=== PATIENT | female | born 1970 | race Caucasian/White ===

== ENCOUNTER 2021-12-02 12:23 | Inpatient (IN) | payer OTHER ==
[~2021-12-02] VITALS: Ht 162.6 cm; Wt 63.8 kg
[2021-12-02] MEDS ORDERED: ZOLPIDEM TARTRATE 10 MG TABLET PO PRN (12:45)
[2021-12-02] MEDS ORDERED: HALOPERIDOL 5 MG TABLET PO PRN (12:45)
[2021-12-02 18:12] VITALS: BP 134/72
[2021-12-02] MEDS ORDERED: INFLUENZA VIRUS VACCINE QVS 2021-22 (6MO+)/PF 60 MCG/0.5 ML SYRINGE IM. ONE (18:15)
[2021-12-03 06:07] VITALS: BP 128/75
[2021-12-03 07:26] LABS: BASOPHILS % (AUTO) 1.1 % (0.0-2.0); EOSINOPHILS % (AUTO) 2.4 % (1.0-6.0); HEMATOCRIT 34.7 % (36-46); HEMOGLOBIN 11.8 g/dL (12.0-16.0); LYMPHOCYTES # (AUTO) 1.5 K/uL (1.0-4.8); LYMPHOCYTES % (AUTO) 25.7 % (22.0-44.0); MEAN CORPUSCULAR HGB CONC 33.9 G/dL (31.0-37.0); MEAN CORPUSCULAR VOLUME 92 fL (80-100); MONOCYTES # (AUTO) 0.5 K/uL (0.1-1.0); MONOCYTES % (AUTO) 8.6 % (2.0-9.0); NEUTROPHILS # (AUTO) 3.6 K/uL (1.8-7.7); NEUTROPHILS % (AUTO) 62.2 % (40.0-70.0); PLATELET COUNT (AUTO) 322 K/uL (150-450); RED BLOOD CELL COUNT(AUTO) 3.79 MIL/uL (4.00-5.20); RED CELL DISTRIBUTION WIDTH 14.6 % (11.5-14.5)
[2021-12-03 07:33] LABS: HEMOGLOBIN A1C 5.4 % (3.8-5.6)
[2021-12-03 08:39] LABS: ALANINE AMINOTRANSFERASE 19 U/L (12-78); ALKALINE PHOSPHATASE 80 U/L (46-116); ANION GAP 9 mmol/L (8-16); ASPARTATE AMINOTRANSFERASE 18 U/L (15-37); BILIRUBIN,TOTAL 0.3 mg/dL (0.1-1.0); CALCIUM, TOTAL 8.4 mg/dL (8.8-10.5); CARBON DIOXIDE 27 mmol/L (22-29); CHLORIDE 104 mmol/L (98-107); CHOL/HDL RATIO 2.4 (3.9-5.7); CHOLESTEROL 184 mg/dL (131-200); CREATININE 0.68 mg/dL (0.60-1.30); FREE T4 (FREE THYROXINE) 0.76 ng/dL (0.76-1.46); GLOMERULAR FILTR. RATE CALC > 60 mL/min (>60); GLUCOSE,RANDOM 91 mg/dL (70-110); HCG,QUANTITATIVE < 1 mIU/mL (0-6); HDL CHOLESTEROL 76 mg/dL (40-60); LDL CHOL (CALC.) 86 mg/dL (0-130); POTASSIUM 4.1 mmol/L (3.5-5.1); SODIUM SERUM 140 mmol/L (136-145); THYROID STIMULATING HORMONE 1.16 uIU/mL (0.36-3.74); TOTAL PROTEIN, SERUM 6.8 g/dL (6.4-8.2); TRIGLYCERIDES 110 mg/dL (15-150); UREA NITROGEN, BLOOD 18 mg/dL (7-18)
[2021-12-03 08:55] VITALS: BP 143/78
[2021-12-03] MEDS: RisperiDONE 1 MG TABLET PO SCH ×2 (09:25→20:47)
[2021-12-03] MEDS: LORazepam 2 MG TABLET PO PRN ×2 (09:52→20:47)
[2021-12-03 16:09] VITALS: BP 122/82
[2021-12-03] MEDS ORDERED: ONDANSETRON HCL 4 MG TABLET PO PRN (18:45)
[2021-12-03] MEDS ORDERED: MAGNESIUM HYDROXIDE SUSPENSION 30 ML UDCUP PO PRN (18:45)
[2021-12-03] MEDS ORDERED: ACETAMINOPHEN 325 MG TABLET PO PRN (18:45)
[2021-12-03] MEDS ORDERED: ALBUTEROL SULFATE HFA 90 MCG/PUFF 8 GM INHALER IH PRN (18:45)
[2021-12-03] MEDS ORDERED: PETROLATUM,WHITE 28 GM JELLY TP PRN (18:45)
[2021-12-03] MEDS ORDERED: NICOTINE 14 MG/24 HOUR PATCH TD PRN (18:45)
[2021-12-03] MEDS ORDERED: LOPERAMIDE HCL 2 MG CAPSULE PO PRN (18:45)
[2021-12-03] MEDS ORDERED: MAG HYDROX/AL HYDROX/SIMETH ES 30 ML SUSPENSION UDCUP PO PRN (18:45)
[2021-12-03] MEDS ORDERED: DOCUSATE SODIUM 100 MG CAPSULE PO PRN (18:45)
[2021-12-03] MEDS ORDERED: GuaiFENesin/D-METHORPHAN [SUGAR-FREE] 200-20MG/10 ML SYRUP UDCUP PO PRN (18:45)
[2021-12-03] MEDS ORDERED: CloNIDine HCL 0.1 MG TABLET PO PRN (18:45)
[2021-12-03] MEDS ORDERED: IBUPROFEN 400 MG TABLET PO PRN (18:45)
[2021-12-04 06:05] VITALS: BP 132/79
[2021-12-04] MEDS: RisperiDONE 1 MG TABLET PO SCH (08:40)
[2021-12-04 08:45] VITALS: BP 125/73
[2021-12-04] MEDS ORDERED: RISP0.5T39 PO (13:03)
[2021-12-04] MEDS ORDERED: RISP1TAB98 PO (18:18)
== END 2021-12-04 14:15 | disposition home or self-care (01) | DRG 885 ==
LOC: B3A 17:49
PROVIDERS: ADMIT Psychiatry & Neurology Psychiatry; ATTEND Psychiatry & Neurology Psychiatry
DX: F20.0 Paranoid schizophrenia (principal); F10.10 Alcohol abuse, uncomplicated; D64.9 Anemia, unspecified; F19.10 Other psychoactive substance abuse, uncomplicated; F12.10 Cannabis abuse, uncomplicated
CPT/HCPCS: 80053; 80061; 83036; 84436; 84439; 84443; 84702; 85025; 86592; 87081; G0480